=== PATIENT | male | born 1985 | race Caucasian/White ===

== ENCOUNTER 2019-03-24 01:16 | Emergency (ER) | payer SELFPAY ==
--- NOTE | 2019-03-24 01:31 | EDM.PDOC ---
ED HPI GENERAL MEDICAL PROBLEM - General Chief Complaint: General Stated Complaint: TOOTHACHE Time Seen by Provider: 03/24/19 01:28 - History of Present Illness INITIAL COMMENTS - FREE TEXT/NARRATIVE: HISTORY AND PHYSICAL: History of present illness: Patient 33-year-old white male sensory concern of multiple dental caries and possible dental abscess he is pain in the region of the right upper molar. Review of systems: As per history of present illness and below otherwise all systems reviewed and negative. Past medical history: As per history of present illness and as reviewed below otherwise noncontributory. Surgical history: As per history of present illness and as reviewed below otherwise noncontributory. Social history: No reported history of drug or alcohol abuse. Family history: As per history of present illness and as reviewed below otherwise noncontributory. Physical exam: HEENT: Profoundly poor dentition with multiple dental caries gingival edema and swelling in the region of the right upper molar Atraumatic, normocephalic, pupils reactive, negative for conjunctival pallor or scleral icterus, mucous membranes moist, throat clear, neck supple, nontender, trachea midline. Lungs: Clear to auscultation, breath sounds equal bilaterally, chest nontender. Heart: S1S2, regular, negative for clicks, rubs, or JVD. Abdomen: Soft, nondistended, nontender. Negative for masses or hepatosplenomegaly. Negative for costovertebral tenderness. Pelvis: Stable nontender. Genitourinary: Deferred. Rectal: Deferred. Extremities: Atraumatic, negative for cords or calf pain. Neurovascular unremarkable. Neuro: Awake, alert, oriented. Cranial nerves II through XII unremarkable. Cerebellum unremarkable. Motor and sensory unremarkable throughout. Exam nonfocal. Diagnostics: None Therapeutics: Dental balls Impression: #1 dentalgia rule out dental abscess Definitive disposition and diagnosis as appropriate pending reevaluation and review of above. - Related Data Allergies Allergy/AdvReac Type Severity Reaction Status Date / Time No Known Allergies Allergy Verified 03/24/19 01:22 Home Meds: Home Meds . [No Known Home Meds] 03/18/18 [History] Past Medical History HEENT History: Reports: None Cardiovascular History: Reports: None Respiratory History: Reports: None Genitourinary History: Reports: None Musculoskeletal History: Reports: Amputation Other Musculoskeletal History: Right hand first finger and pinky Neurological History: Reports: None Psychiatric History: Reports: None Endocrine/Metabolic History: Reports: None Hematologic History: Reports: None Immunologic History: Reports: None Oncologic (Cancer) History: Reports: None Dermatologic History: Reports: None - Infectious Disease History Infectious Disease History: Reports: None - Past Surgical History Head Surgeries/Procedures: Reports: None Social & Family History - Family History Family Medical History: Noncontributory - Caffeine Use Caffeine Use: Reports: Coffee ED ROS GENERAL - Review of Systems Review Of Systems: Comprehensive ROS is negative, except as noted in HPI. ED EXAM, GENERAL - Physical Exam Exam: See Below (See dictation) Departure - Departure Time of Disposition: 01:30 Disposition: Home, Self-Care 01 Condition: Good Clinical Impression: Dentalgia, Dental abscess - Discharge Information Referrals: PCP,None [Primary Care Provider] - Additional Instructions: The following information is given to patients seen in the emergency department who are being discharged to home. This information is to outline your options for follow-up care. We provide all patients seen in our emergency department with a follow-up referral. The need for follow-up, as well as the timing and circumstances, are variable depending upon the specifics of your emergency department visit. If you don't have a primary care physician on staff, we will provide you with a referral. We always advise you to contact your personal physician following an emergency department visit to inform them of the circumstance of the visit and for follow-up with them and/or the need for any referrals to a consulting specialist. The emergency department will also refer you to a specialist when appropriate. This referral assures that you have the opportunity for followup care with a specialist. All of these measure are taken in an effort to provide you with optimal care, which includes your followup. Under all circumstances we always encourage you to contact your private physician who remains a resource for coordinating your care. When calling for followup care, please make the office aware that this follow-up is from your recent emergency room visit. If for any reason you are refused follow-up, please contact the [facility] emergency department at and asked to speak to the emergency department charge nurse. Augmentin is prescribed dental balls as directed Motrin/Tylenol as directed follow-up dentist return as needed as discussed
[2019-03-24] MEDS ORDERED: Benzocaine 20% Topical Spray UD MUCMEM ONE (01:32)
[2019-03-24] MEDS ORDERED: Lidocaine 2% Viscous Solution 100 ML Bottle PO ONE (01:32)
[2019-03-24] MEDS ORDERED: Lidocaine 2% Viscous Solution 15 ML Cup ONE (01:35)
== END 2019-03-24 01:46 | disposition home or self-care (01) ==
LOC: MW.ED 01:16
DX: K04.7 Periapical abscess without sinus (principal)
CPT/HCPCS: 99282; A9270

== ENCOUNTER 2019-04-13 00:16 | Emergency (ER) | payer SELFPAY ==
[2019-04-13] MEDS ORDERED: Acetaminophen/HYDROcodone 325-5 MG Tab PO ONE (00:46)
--- NOTE | 2019-04-13 00:53 | EDM.PDOC ---
ED HPI GENERAL MEDICAL PROBLEM - General Chief Complaint: Skin Complaint Stated Complaint: CYST Time Seen by Provider: 04/13/19 00:29 - History of Present Illness INITIAL COMMENTS - FREE TEXT/NARRATIVE: HISTORY AND PHYSICAL: History of present illness: The patient is a 33-year-old male with a history of a recurrent cyst near his telephone on the right buttocks that has been ongoing for many years and he has had it drained in the past but never definitively taken care of and presents with a 3 to four-day history of increased swelling and recurrence of the cyst with rupture of the cyst today earlier this evening. The patient says that he felt extreme pain and pressure and then felt copious fluid going down his legs like he pooped his pants. He said it continued to drain a large amount and area was manipulated by his significant other but they came in for evaluation. He is still having a lot of pain in the area but he says that the pain does not extend to his rectum or perianal area and he has no abdominal pain vomiting fevers chills chest pain or shortness of breath. The patient tells me this is the same area of the cyst recurs all the time is not new or different. He's had it drained several times in the ER in the past but again has never seen a surgeon for it. The patient says that when this happens his whole back starts hurting on that side. He is passing his urine and stool without difficulty. Review of systems: As per history of present illness and below otherwise all systems reviewed and negative. Past medical history: As per history of present illness and as reviewed below otherwise noncontributory. Surgical history: As per history of present illness and as reviewed below otherwise noncontributory. Social history: No reported history of drug or alcohol abuse. Family history: As per history of present illness and as reviewed below otherwise noncontributory. Physical exam: General: Well-developed well-nourished man who is nontoxic and vital signs were noted by me. HEENT: Atraumatic, normocephalic, pupils reactive, negative for conjunctival pallor or scleral icterus, mucous membranes moist, throat clear, neck supple, nontender, trachea midline. Lungs: Clear to auscultation, breath sounds equal bilaterally, chest nontender. Heart: S1S2, regular, negative for clicks, rubs, or JVD. Abdomen: Soft, nondistended, nontender. Negative for costovertebral tenderness. Pelvis: Stable nontender. Genitourinary: Deferred. Rectal: The perianal area is without any lesions or abnormalities nor is there any tenderness or fluctuance and push and squeeze are intact. More superiorly near the sacral/coccygeal area on the right there is a 1 cm opening seen with scant amount of drainage noted with palpation and some minimal surrounding erythema and tenderness. There is small oval area of induration extend ring superiorly and laterally from this open site which seems to define the cyst cavity but again there is no fluctuance or swelling and I cannot express much more pus only a scant amount. The surrounding cortex area is without tenderness or swelling Extremities: Atraumatic, negative for cords or calf pain. Neurovascular unremarkable. Neuro: Awake, alert, oriented. Cranial nerves II through XII unremarkable. Cerebellum unremarkable. Motor and sensory unremarkable throughout. Exam nonfocal. Diagnostics: [] Therapeutics: [place] 5/325 I discussed with the patient that the opening is significant enough that would allow further drainage of any fluid and that there is not much fluid or fluctuance left in this region and per his testimony he did drain a significant amount of fluid at home. I will place him on the expedited surgery follow-up as this does need to be treated definitively and he is aware that he needs to make a call to be seen next week to schedule that. I've advised him that this area will continue to drain and that we will place him on antibiotics and I will give him some tramadol from [facility] for pain management for home to take when he is at home. Impression: Recurrent pilonidal cyst with spontaneous drainage Definitive disposition and diagnosis as appropriate pending reevaluation and review of above. gluteal area Pain Score (Numeric/FACES): 10 - Related Data Allergies Allergy/AdvReac Type Severity Reaction Status Date / Time No Known Allergies Allergy Verified 04/13/19 00:29 Home Meds: Home Meds . [No Known Home Meds] 03/18/18 [History] Past Medical History - Past Health History Medical/Surgical History: Denies Medical/Surgical History HEENT History: Reports: None Cardiovascular History: Reports: None Respiratory History: Reports: None Gastrointestinal History: Reports: None Genitourinary History: Reports: None Musculoskeletal History: Reports: Amputation Other Musculoskeletal History: Right hand first finger and pinky Neurological History: Reports: None Psychiatric History: Reports: None Endocrine/Metabolic History: Reports: None Insulin Pump Model and Network Account Manager: None Hematologic History: Reports: None Immunologic History: Reports: None Oncologic (Cancer) History: Reports: None Dermatologic History: Reports: None - Infectious Disease History Infectious Disease History: Reports: None - Past Surgical History Head Surgeries/Procedures: Reports: None Social & Family History - Family History Family Medical History: Noncontributory - Tobacco Use Smoking Status *Q: Never Smoker - Caffeine Use Caffeine Use: Reports: Coffee - Recreational Drug Use Recreational Drug Use: No ED ROS GENERAL - Review of Systems Review Of Systems: Comprehensive ROS is negative, except as noted in HPI. ED EXAM, SKIN/RASH Exam: See Below (See dictation) Course - Vital Signs Last Recorded V/S: Last Vital Signs Temp 36.4 C 04/13/19 00:30 Pulse 78 04/13/19 00:30 Resp 18 04/13/19 00:30 BP 120/63 04/13/19 00:30 Pulse Ox 98 04/13/19 00:30 - Orders/Labs/Meds Meds: Medications Discontinued Medications Generic Name Dose Route Start Last Admin Trade Name Freq PRN Reason Stop Dose Admin Hydrocodone Bitart/Acetaminophen 1 tab 04/13/19 00:46 [place] 325-5 Mg PO 04/13/19 00:47 ONETIME ONE Departure - Departure Time of Disposition: 00:51 Disposition: Home, Self-Care 01 Condition: Good Clinical Impression: Infected pilonidal cyst - Discharge Information Referrals: PCP,None [Primary Care Provider] - Additional Instructions: The following information is given to patients seen in the emergency department who are being discharged to home. This information is to outline your options for follow-up care. We provide all patients seen in our emergency department with a follow-up referral. The need for follow-up, as well as the timing and circumstances, are variable depending upon the specifics of your emergency department visit. If you don't have a primary care physician on staff, we will provide you with a referral. We always advise you to contact your personal physician following an emergency department visit to inform them of the circumstance of the visit and for follow-up with them and/or the need for any referrals to a consulting specialist. The emergency department will also refer you to a specialist when appropriate. This referral assures that you have the opportunity for followup care with a specialist. All of these measure are taken in an effort to provide you with optimal care, which includes your followup. Under all circumstances we always encourage you to contact your private physician who remains a resource for coordinating your care. When calling for followup care, please make the office aware that this follow-up is from your recent emergency room visit. If for any reason you are refused follow-up, please contact the emergency department at and ask to speak to the emergency department charge nurse. [facility] [address] [place] [phone] Please connect with our surgery clinic as we discussed in the morning to schedule an appointment for next week for definitive care and treatment of this and expect more drainage to occur. Take antibiotics as you have been prescribed from [facility] and use [id number] Tylenol and ibuprofen for pain management throughout the day and use the stronger pain medication, tramadol/ Ultram that you have been given from [facility]. Return to ER as needed as discussed
== END 2019-04-13 01:16 | disposition home or self-care (01) ==
LOC: MW.ED 00:16
DX: L05.91 Pilonidal cyst without abscess (principal)
CPT/HCPCS: 99283; A9270; 99282

== ENCOUNTER 2019-04-28 10:37 | Day surgery (SDC) | payer OTHER ==
[2019-04-28] MEDS ORDERED: Lidocaine 2% 5 ML SDV ONE (11:35)
[2019-04-28] MEDS ORDERED: Propofol 200 MG/20 ML SDV ONE (11:35)
[2019-04-28] MEDS ORDERED: Rocuronium 100 MG/10 ML Syringe ONE (11:36)
[2019-04-28] MEDS ORDERED: Midazolam 1 MG/ML 2 ML SDV ONE (11:36)
[2019-04-28] MEDS ORDERED: fentaNYL 100 MCG/2 ML SDV ONE (11:36)
[2019-04-28] MEDS ORDERED: Ketorolac 30 MG/ML SDV ONE ×2 (11:58→15:19)
--- NOTE | 2019-04-28 12:35 | PCM.PREANE ---
Preanesthetic Assessment - Anesthesia/Transfusion/Family Hx Anesthesia History: Prior Anesthesia Without Reaction Family History of Anesthesia Reaction: No Transfusion History: No Prior Transfusion(s) Intubation History: Unknown - Review of Systems General: No Symptoms Pulmonary: No Symptoms Cardiovascular: No Symptoms Gastrointestinal: No Symptoms Neurological: No Symptoms Other: Reports: None - Physical Assessment NPO Status Date: 04/28/19 NPO Status Time: 23:00 Vital Signs: Last Vital Signs Temp 36.5 C 04/28/19 11:15 Pulse 73 04/28/19 11:15 Resp 16 04/28/19 11:15 BP 118/68 04/28/19 11:15 Pulse Ox 98 04/28/19 11:15 Height: 5 ft 8 in Weight: 89.358 kg ASA Class: 2 Mental Status: Alert & Oriented x3 Airway Class: Mallampati = 1 Dentition: Reports: Broken Tooth/Teeth (most of the teeth broken), Caries ( multiple tooth with caries) Thyro-Mental Finger Breadths: 3 Mouth Opening Finger Breadths: 3 ROM/Head Extension: Full Lungs: Clear to Auscultation, Normal Respiratory Effort Cardiovascular: Regular Rate, Regular Rhythm - Allergies Allergies/Adverse Reactions: Allergies Allergy/AdvReac Type Severity Reaction Status Date / Time No Known Allergies Allergy Verified 04/26/19 14:54 - Blood Blood Available: No - Anesthesia Plan Pre-Op Medication Ordered: None - Acknowledgements Anesthesia Type Planned: General Anesthesia Pt an Appropriate Candidate for the Planned Anesthesia: Yes Alternatives and Risks of Anesthesia Discussed w Pt/Guardian: Yes Pt/Guardian Understands and Agrees with Anesthesia Plan: Yes PreAnesthesia Questionnaire - Past Health History Medical/Surgical History: Denies Medical/Surgical History HEENT History: Reports: None Cardiovascular History: Reports: None Respiratory History: Reports: Other (See Below) Other Respiratory History: asthma as a child Gastrointestinal History: Reports: Other (See Below) Other Gastrointestinal History: occasional heartburn Genitourinary History: Reports: None Musculoskeletal History: Reports: Amputation Other Musculoskeletal History: Right hand index finger and pinky Neurological History: Reports: None Psychiatric History: Reports: None Endocrine/Metabolic History: Reports: Obesity/BMI 30+ Hematologic History: Reports: None Immunologic History: Reports: None Oncologic (Cancer) History: Reports: None Dermatologic History: Reports: Other (See Below) (recurrent pilonidal abscesses) - Infectious Disease History Infectious Disease History: Reports: None - Past Surgical History Head Surgeries/Procedures: Reports: None HEENT Surgical History: Reports: None Cardiovascular Surgical History: Reports: None Respiratory Surgical History: Reports: None GI Surgical History: Reports: Colonoscopy Male Surgical History: Reports: None Endocrine Surgical History: Reports: None Neurological Surgical History: Reports: None Oncologic Surgical History: Reports: None Dermatological Surgical History: Reports: Other (See Below) (I&D of pilonidal abscess 4-5 years ago in ER) - SUBSTANCE USE Smoking Status *Q: Light Tobacco Smoker Tobacco Use Within Last Twelve Months: Cigarettes - HOME MEDS Home Medications: Home Meds Calcium Carbonate [Tums] 1 tab.chew CHEW ASDIRECTED PRN 04/26/19 [History] Cephalexin [Keflex] 500 mg PO TID 04/26/19 [History] metroNIDAZOLE [Metronidazole] 500 mg PO TID 04/26/19 [History] traMADol HCl [Tramadol HCl] 50 mg PO ASDIRECTED PRN 04/26/19 [History] - CURRENT (IN HOUSE) MEDS Current Meds: Current Medications Discontinued Medications Fentanyl (Sublimaze) Confirm Administered Dose 100 mcg .ROUTE .STK-MED ONE Stop: 04/28/19 11:37 Ketorolac Tromethamine (Toradol) Confirm Administered Dose 30 mg .ROUTE .STK- MED ONE Stop: 04/28/19 11:59 Lidocaine (Xylocaine-Mpf 2%) Confirm Administered Dose 5 ml .ROUTE .STK-MED ONE Stop: 04/28/19 11:36 Midazolam HCl (Versed 1 Mg/Ml) Confirm Administered Dose 2 mg .ROUTE .STK-MED ONE Stop: 04/28/19 11:37 Propofol (Diprivan 20 Ml) Confirm Administered Dose 200 mg .ROUTE .STK-MED ONE Stop: 04/28/19 11:36 Rocuronium Philo (Zemuron) Confirm Administered Dose 100 mg .ROUTE .STK-MED ONE Stop: 04/28/19 11:37 Succinylcholine Chloride (Succinylcholine Chloride) Confirm Administered Dose 200 mg .ROUTE .STK-MED ONE Stop: 04/28/19 11:37
[2019-04-28] MEDS ORDERED: fentaNYL 100 MCG/2 ML SDV IVPUSH PRN (14:06)
[2019-04-28] MEDS ORDERED: HYDROmorphone 2 MG/ML Syringe ONE (14:56)
[2019-04-28] MEDS ORDERED: Ondansetron 4 MG/2 ML SDV ONE (14:57)
[2019-04-28] MEDS ORDERED: Dexamethasone 4 MG/ML 5 ML MDV ONE (14:57)
[2019-04-28] MEDS ORDERED: Acetaminophen/HYDROcodone 325-5 MG Tab PO PRN (15:42)
[2019-04-28] MEDS ORDERED: Morphine 10 MG/ML Syringe IVPUSH PRN (15:42)
--- NOTE | 2019-04-28 15:44 | PCM.OPNOTE ---
- General Post-Op/Procedure Note Date of Surgery/Procedure: 04/28/19 Operative Procedure(s): Incision drainage and marsupialization chronic pilonidal cyst with abscess Pre Op Diagnosis: multiply recurrent pilonidal abscess Post-Op Diagnosis: Same Anesthesia Technique: General ET Tube (ASA II) Primary Surgeon: Jose Miguel Alston Fluid Replacement, Intraop: 1,100 EBL in mLs: 5 Condition: Good Free Text/Narrative:: DICTATION [id number] CPT CODE 67590
[2019-04-28] MEDS ORDERED: Lactated Ringers 1,000 ML IV SCH (15:45)
--- NOTE | 2019-04-28 16:11 | PCM.POSTAN ---
POST ANESTHESIA ASSESSMENT - VITAL SIGNS Vital Signs: Last Vital Signs Temp 36.6 C 04/28/19 15:26 Pulse 64 04/28/19 16:07 Resp 10 L 04/28/19 16:07 BP 101/55 L 04/28/19 16:07 Pulse Ox 95 04/28/19 16:07 - PAIN Pain Score: 0
--- NOTE | 2019-04-28 16:57 | OR ---
SURGEON: Jose Miguel Alston M.D. DATE OF PROCEDURE: 04/28/2019 OPERATION PERFORMED: Incision and drainage of marsupialization, chronic pilonidal cyst and sinus. ANESTHESIA: General endotracheal ASA CLASSIFICATION: 2. PREOPERATIVE DIAGNOSIS: Chronically recurrent pilonidal cyst with abscess. POSTOPERATIVE DIAGNOSIS: Chronically recurrent pilonidal cyst with abscess. ESTIMATED BLOOD LOSS: 5 mL. INTRAOPERATIVE FLUID REPLACEMENT: 1100 mL of crystalloid. DESCRIPTION OF PROCEDURE: The patient was taken to the operating room and kept on the transfer cart in the supine position. Time-out was called for appropriate identification of the patient and procedure. Following satisfactory attainment of general endotracheal anesthesia, the patient was placed on the operating table in the prone position. Care was taken to pad all bony prominences. The buttocks were taped apart. The surgical site was then prepped with Betadine and sterile drapes were applied. Probe was placed into the cutaneous opening and skin incision made directly over the probe. This was continued into the subcutaneous tissue. There was a small amount of granulation tissue present at the cutaneous opening and this was curetted. The bleeding sites were electrocoagulated. The wound was then irrigated with sterile saline solution. All fluid was aspirated and the wound again inspected for hemostasis. The wound was again probed and no other tracts were identified. Adaptic was placed into the wound which was then packed with 1-inch plain Nu Gauze. This was then dressed with an ABD and held in place with mesh panties. Sponge, needle, and instrument counts were all correct. The patient was returned to the transfer cart into the supine position. Following emergence from anesthesia and extubation, he was taken to recovery room in stable condition. SCOOTER STEPHENS /[id number]
--- NOTE | 2019-04-28 17:31 | PCM48HPAN ---
Post Anesthesia Note - EVALUATION WITHIN 48HRS OF ANESTHETIC Vital Signs in Normal Range: Yes Patient Participated in Evaluation: Yes Respiratory Function Stable: Yes Airway Patent: Yes Cardiovascular Function Stable: Yes Hydration Status Stable: Yes Pain Control Satisfactory: Yes Nausea and Vomiting Control Satisfactory: Yes Mental Status Recovered: Yes Vital Signs: Last Vital Signs Temp 36.2 C 04/28/19 16:20 Pulse 75 04/28/19 16:20 Resp 16 04/28/19 16:20 BP 109/68 04/28/19 16:20 Pulse Ox 96 04/28/19 16:20 - COMMENTS/OBSERVATIONS Free Text/Narrative:: no anesthesia problems
== END 2019-04-28 17:50 | disposition home or self-care (01) ==
LOC: MW.SDS 10:37
PROVIDERS: ATTEND Surgery
DX: L05.01 Pilonidal cyst with abscess (principal); F17.200 Nicotine dependence, unspecified, uncomplicated; Z79.891 Long term (current) use of opiate analgesic; Z79.899 Other long term (current) drug therapy
CPT/HCPCS: 11771; J0330; J1100; J1170; J1885; J2001; J2250; J2405; J2704; J3010; J7120

== ENCOUNTER 2019-07-01 10:48 | Emergency (ER) | payer OTHER ==
--- NOTE | 2019-07-01 11:13 | EDM.PDOC ---
ED HPI GENERAL MEDICAL PROBLEM - General Chief Complaint: Respiratory Problem Stated Complaint: COUGHING AND FEVER Time Seen by Provider: 07/01/19 11:13 Source of Information: Reports: Patient History Limitations: Reports: No Limitations - History of Present Illness INITIAL COMMENTS - FREE TEXT/NARRATIVE: HISTORY AND PHYSICAL: History of present illness: Patient is a 34-year-old male presents to the ED with complaint of cough and fever. Patient states he has had a cough x 2 weeks. He was started on augmentin 3 days ago for bronchitis but states his cough is worse in the last 2 days. He reports subjective fevers. Denies vomiting, diarrhea, chest pain. Reports some SOB and emesis with vomiting. Review of systems: As per history of present illness and below otherwise all systems reviewed and negative. Past medical history: As per history of present illness and as reviewed below otherwise noncontributory. Surgical history: As per history of present illness and as reviewed below otherwise noncontributory. Social history: No reported history of drug or alcohol abuse. Family history: As per history of present illness and as reviewed below otherwise noncontributory. Physical exam: General: Patient sitting comfortably in no acute distress and nontoxic appearing HEENT: Atraumatic, normocephalic, pupils reactive, negative for conjunctival pallor or scleral icterus, mucous membranes moist, throat clear, neck supple, nontender, trachea midline. No meningeal signs. Lungs: Clear to auscultation, breath sounds equal bilaterally, chest nontender. Heart: S1S2, regular, negative for clicks, rubs, or overt murmur. Abdomen: Soft, nondistended, nontender. Negative for masses or hepatosplenomegaly. Negative for costovertebral tenderness. No rigidity, rebound , guarding. Pelvis: Stable nontender. Genitourinary: Deferred. Rectal: Deferred. Extremities: Atraumatic, negative for cords or calf pain. Neurovascular unremarkable. Neuro: Awake, alert, oriented. Cranial nerves II through XII unremarkable. Cerebellum unremarkable. Motor and sensory unremarkable throughout. Exam nonfocal. Notes: Diagnostics: Influenza Therapeutics: none Prescriptions: Impression: Cough, exposure to influenza Plan: 1. Drink plenty of fluids and alternate tylenol and motrin as discussed. 2. Follow up with primary care provider 3. Return to ED as needed as discussed Definitive disposition and diagnosis as appropriate pending reevaluation and review of above. Chest with Cough Pain Score (Numeric/FACES): 8 - Related Data Allergies Allergy/AdvReac Type Severity Reaction Status Date / Time No Known Allergies Allergy Verified 07/01/19 11:26 Home Meds: Home Meds Amoxicillin/Clavulanate K [Augmentin 875-125 MG] 0 tab PO ASDIRECTED 07/01/19 [ History] Codeine Phosphate/Guaifenesin [Guaifen-Codeine 200-20 mg/10Ml] 0 ml PO ASDIRECTED 07/01/19 [History] Past Medical History - Past Health History Medical/Surgical History: Denies Medical/Surgical History HEENT History: Reports: None Cardiovascular History: Reports: None Respiratory History: Reports: Other (See Below) Other Respiratory History: asthma as a child Gastrointestinal History: Reports: Other (See Below) Other Gastrointestinal History: occasional heartburn Genitourinary History: Reports: None Musculoskeletal History: Reports: Amputation Other Musculoskeletal History: Right hand index finger and pinky Neurological History: Reports: None Psychiatric History: Reports: None Endocrine/Metabolic History: Reports: Obesity/BMI 30+ Insulin [employer] Dining Room Attendant: None Hematologic History: Reports: None Immunologic History: Reports: None Oncologic (Cancer) History: Reports: None Dermatologic History: Reports: Other (See Below) (recurrent pilonidal abscesses) - Infectious Disease History Infectious Disease History: Reports: None - Past Surgical History Head Surgeries/Procedures: Reports: None HEENT Surgical History: Reports: None Cardiovascular Surgical History: Reports: None Respiratory Surgical History: Reports: None GI Surgical History: Reports: Colonoscopy Male Surgical History: Reports: None Endocrine Surgical History: Reports: None Neurological Surgical History: Reports: None Oncologic Surgical History: Reports: None Dermatological Surgical History: Reports: Other (See Below) (I&D of pilonidal abscess 4-5 years ago in ER) Social & Family History - Family History Family Medical History: Noncontributory - Caffeine Use Caffeine Use: Reports: Coffee ED ROS GENERAL - Review of Systems Review Of Systems: Comprehensive ROS is negative, except as noted in HPI. ED EXAM, GENERAL - Physical Exam Exam: See Below (see dictation) Course - Vital Signs Last Recorded V/S: Last Vital Signs Temp 97.9 F 07/01/19 11:28 Pulse 85 07/01/19 11:28 Resp 16 07/01/19 11:28 BP 139/81 07/01/19 11:28 Pulse Ox 98 07/01/19 11:28 Departure - Departure Time of Disposition: 12:12 Disposition: Home, Self-Care 01 Condition: Good Clinical Impression: Exposure to influenza - Discharge Information Referrals: PCP,None [Primary Care Provider] - Forms: ED Department Discharge Additional Instructions: The following information is given to patients seen in the emergency department who are being discharged to home. This information is to outline your options for follow-up care. We provide all patients seen in our emergency department with a follow-up referral. The need for follow-up, as well as the timing and circumstances, are variable depending upon the specifics of your emergency department visit. If you don't have a primary care physician on staff, we will provide you with a referral. We always advise you to contact your personal physician following an emergency department visit to inform them of the circumstance of the visit and for follow-up with them and/or the need for any referrals to a consulting specialist. The emergency department will also refer you to a specialist when appropriate. This referral assures that you have the opportunity for follow-up care with a specialist. All of these measure are taken in an effort to provide you with optimal care, which includes your follow-up. Under all circumstances we always encourage you to contact your private physician who remains a resource for coordinating your care. When calling for follow-up care, please make the office aware that this follow-up is from your recent emergency room visit. If for any reason you are refused follow-up, please contact the [facility] at and asked to speak to the emergency department charge nurse. [facility] [address] [place] [id number] [address] [id number] 1. Drink plenty of fluids and alternate tylenol and motrin as discussed. 2. Follow up with primary care provider 3. Return to ED as needed as discussed Sepsis Event Note - Focused Exam Vital Signs: Vital Signs Temp Pulse Resp BP Pulse Ox 07/01/19 11:28 97.9 F 85 16 139/81 98 Date Exam was Performed: 07/01/19 Time Exam was Performed: 12:12
== END 2019-07-01 12:40 | disposition home or self-care (01) ==
LOC: MW.ED 10:48
DX: Z20.828 Contact with and (suspected) exposure to other viral communicable diseases (principal); R05 Cough
CPT/HCPCS: 87804; 99282; 99283

== ENCOUNTER 2021-06-23 08:58 | Day surgery (SDC) | payer BC, OTHER ==
[~2021-06-23 08:58] MED LIST: Albuterol 0.083% 2.5 MG/3 ML Neb Soln NEB PRN; HYDROmorphone 1 MG/ML Syringe IVPUSH PRN; Lactated Ringers 1,000 ML IV SCH; Metoclopramide 10 MG/2 ML SDV IVPUSH PRN; Morphine 2 MG/ML SYRINGE IVPUSH PRN; Naloxone 0.4 MG/ML SDV IVPUSH PRN; Ondansetron 4 MG/2 ML SDV IVPUSH PRN; fentaNYL 100 MCG/2 ML SDV IVPUSH PRN
[2021-06-23] MEDS ORDERED: Lidocaine 2% 5 ML SDV ONE (10:06)
[2021-06-23] MEDS ORDERED: Bupivacaine 0.5% 30 ML SDV ONE (10:08)
[2021-06-23] MEDS ORDERED: fentaNYL 100 MCG/2 ML SDV ONE (10:10)
[2021-06-23] MEDS ORDERED: Midazolam 1 MG/ML 2 ML SDV ONE (10:10)
[2021-06-23] MEDS ORDERED: Propofol 200 MG/20 ML SDV ONE (10:10)
[2021-06-23] MEDS ORDERED: Dexamethasone 4 MG/ML 5 ML MDV ONE (10:39)
[2021-06-23] MEDS ORDERED: Ketorolac 30 MG/ML SDV ONE (10:43)
[2021-06-23] MEDS ORDERED: Ondansetron 4 MG/2 ML SDV ONE (10:43)
[2021-06-23] MEDS ORDERED: Rocuronium Bromide 50 MG/5 ML Syringe ONE (10:43)
[2021-06-23] MEDS ORDERED: Acetaminophen/HYDROcodone 325-5 MG Tab PO PRN ×2 (11:19→11:47)
[2021-06-23] MEDS ORDERED: Morphine 2 MG/ML SYRINGE IVPUSH PRN (11:19)
[2021-06-23] MEDS ORDERED: Lactated Ringers 1,000 ML IV SCH (11:30)
== END 2021-06-23 13:15 | disposition home or self-care (01) ==
LOC: MW.SDS 08:58
PROVIDERS: ATTEND Surgery
DX: L05.91 Pilonidal cyst without abscess (principal); K21.9 Gastro-esophageal reflux disease without esophagitis; F17.210 Nicotine dependence, cigarettes, uncomplicated; E66.9 Obesity, unspecified; Z68.30 Body mass index [BMI] 30.0-30.9, adult
CPT/HCPCS: 10080; J0330; J1100; J1885; J2250; J2405; J2704; J3010; J3490; J7120; 00300

== ENCOUNTER 2021-09-26 09:49 | Day surgery (SDC) | payer BC ==
[~2021-09-26 09:49] MED LIST changes: -Albuterol 0.083% 2.5 MG/3 ML Neb Soln NEB PRN; -HYDROmorphone 1 MG/ML Syringe IVPUSH PRN; -Metoclopramide 10 MG/2 ML SDV IVPUSH PRN; -Morphine 2 MG/ML SYRINGE IVPUSH PRN; -Naloxone 0.4 MG/ML SDV IVPUSH PRN; -Ondansetron 4 MG/2 ML SDV IVPUSH PRN; +ceFAZolin 2 GM in Premix Bag 1 BAG IV ONE; -fentaNYL 100 MCG/2 ML SDV IVPUSH PRN
[2021-09-26] MEDS ORDERED: Metoclopramide 10 MG/2 ML SDV IVPUSH PRN (10:36)
[2021-09-26] MEDS ORDERED: HYDROmorphone 1 MG/ML Syringe IVPUSH PRN (10:36)
[2021-09-26] MEDS ORDERED: Albuterol 0.083% 2.5 MG/3 ML Neb Soln NEB PRN (10:36)
[2021-09-26] MEDS ORDERED: Naloxone 0.4 MG/ML SDV IVPUSH PRN (10:36)
[2021-09-26] MEDS ORDERED: Ondansetron 4 MG/2 ML SDV IVPUSH PRN (10:36)
[2021-09-26] MEDS ORDERED: fentaNYL 100 MCG/2 ML SDV IVPUSH PRN (10:36)
[2021-09-26] MEDS ORDERED: Lidocaine 2% 5 ML SDV ONE (10:53)
[2021-09-26] MEDS ORDERED: Midazolam 1 MG/ML 2 ML SDV ONE (10:53)
[2021-09-26] MEDS ORDERED: Propofol 200 MG/20 ML SDV ONE (10:53)
[2021-09-26] MEDS ORDERED: Ondansetron 4 MG/2 ML SDV ONE (10:53)
[2021-09-26] MEDS ORDERED: Ketorolac 30 MG/ML SDV ONE (10:53)
[2021-09-26] MEDS ORDERED: fentaNYL 100 MCG/2 ML SDV ONE (10:53)
[2021-09-26] MEDS ORDERED: Sugammadex Sodium 200 MG/2 ML VIAL ONE (10:53)
[2021-09-26] MEDS ORDERED: Rocuronium Bromide 50 MG/5 ML Syringe ONE (10:53)
[2021-09-26] MEDS ORDERED: Dexamethasone 4 MG/ML 5 ML MDV ONE (10:53)
[2021-09-26] MEDS ORDERED: Bupivacaine 0.5% 30 ML SDV ONE (11:30)
[2021-09-26] MEDS ORDERED: Dexmedetomidine 200 MCG/2 ML SDV ONE (12:21)
[2021-09-26] MEDS ORDERED: Water For Injection, Sterile 20 ML ONE (12:21)
[2021-09-26] MEDS ORDERED: Acetaminophen/HYDROcodone 325-5 MG Tab PO PRN (13:02)
[2021-09-26] MEDS ORDERED: Morphine 4 MG/ML VIAL IVPUSH PRN (13:02)
[2021-09-26] MEDS ORDERED: Lactated Ringers 1,000 ML IV SCH (13:15)
== END 2021-09-26 14:20 | disposition home or self-care (01) ==
LOC: MW.SDS 09:49
PROVIDERS: ATTEND Surgery
DX: L05.01 Pilonidal cyst with abscess (principal); F17.210 Nicotine dependence, cigarettes, uncomplicated; K21.9 Gastro-esophageal reflux disease without esophagitis; Z98.890 Other specified postprocedural states
CPT/HCPCS: 11770; 87070; 87075; 87205; J0131; J0690; J1100; J1885; J2250; J2405; J2704; J3010; J3490; J7120

== ENCOUNTER 2025-01-20 16:58 | Emergency (ER) | payer BC ==
[2025-01-20] MEDS: Ketorolac 30 MG/ML SDV IM ONE (17:26)
[2025-01-20 19:38] LABS: BASOPHILS ABSOLUTE AUTO 0.08 K/uL (0.00-0.20); BASOPHILS PERCENT AUTO 0.8 % (0.0-1.0); EOSINOPHILS ABSOLUTE AUTO 0.64 K/uL (0.00-0.45); EOSINOPHILS PERCENT AUTO 6.7 % (0.0-6.0); IMMATURE GRAN ABSOLUTE AUTO 0.04 K/uL (0.00-0.05); IMMATURE GRAN PERCENT AUTO 0.4 % (0.0-0.4); LYMPHOCYTES ABSOLUTE AUTO 3.27 K/uL (1.00-4.80); LYMPHOCYTES PERCENT AUTO 34.1 % (24.0-44.0); MEAN PLATELET VOLUME 10.0 fL (9.4-12.4); MONOCYTES ABSOLUTE AUTO 0.84 K/uL (0.00-0.80); MONOCYTES PERCENT AUTO 8.8 % (0.0-8.0); NEUTROPHILS ABSOLUTE AUTO 4.73 K/uL (1.80-7.70); NEUTROPHILS PERCENT AUTO 49.2 % (41.0-71.0); NRBC ABSOLUTE 0.00 K/uL (0.00-0.02); NRBC PERCENT 0.0 /100WBC (0.0-0.2); PLATELET COUNT,PLT 232 K/uL (150-400); RED BLOOD CELL COUNT 5.13 M/uL (4.52-5.90); WHITE BLOOD CELL COUNT,WBC 9.60 K/uL (3.9-11.3)
[2025-01-20] MEDS: methylPREDNISolone Sodium Succinate 125 MG/2 ML SDV IVPUSH ONE (19:38)
[2025-01-20 19:56] LABS: BLOOD UREA NITROGEN,BUN 8 mg/dL (7.0-18.0); CARBON DIOXIDE,CO2 31.2 mmol/L (21.0-32.0); CHLORIDE,CL 107 mmol/L (98-107); CREATININE 1.2 mg/dL (0.8-1.3); GLUCOSE RANDOM 102 mg/dL (74-106); POTASSIUM,K 4.3 mmol/L (3.5-5.1); SODIUM,NA 143 mmol/L (136-148)
[2025-01-20 19:58] LABS: ESTIMATED GFR 80 mL/min (>60)
== END 2025-01-20 21:36 | disposition home or self-care (01) ==
LOC: MW.ED 16:58
DX: M54.42 Lumbago with sciatica, left side (principal); I10 Essential (primary) hypertension; Z79.899 Other long term (current) drug therapy
CPT/HCPCS: 36415; 80048; 83735; 85025; 96372; 96374; 96375; 99284; A9270; J1885; J2919; J1171